=== PATIENT | female | born 1940 | race Caucasian/White ===

== ENCOUNTER 2016-12-20 16:12 | Inpatient (IN) | payer MEDICARE, OTHER ==
[2016-12-20] MEDS ORDERED: Sodium Chloride 0.9% 1,000 ML IV ONE (16:45)
[2016-12-20] MEDS ORDERED: Morphine 4 MG/ML Syringe IVPUSH ONE (16:46)
--- NOTE | 2016-12-20 16:46 | EDM.PDOC ---
ED HPI GENERAL MEDICAL PROBLEM - General Chief Complaint: Upper Extremity Injury/Pain Stated Complaint: FALL Time Seen by Provider: 12/20/16 16:30 Source of Information: Reports: Patient History Limitations: Reports: No Limitations - History of Present Illness INITIAL COMMENTS - FREE TEXT/NARRATIVE: Bella is a 76 year old female who presents to the ED today with c/o left shoulder pain, neck pain, rib pain, and pain with inspiration since falling today. Patient reports she was approximately 4 feet up on a ladder in her kitchen cleaning windows when she lost her balance and fell. She denies any lightheadedness or dizziness prior to falling. Patient reports she landed on her back then her head went back and struck the floor. Patient had PIV established enroute and was given fentanyl. Patient denies any LOC or nausea/ vomiting/visual changes. Patient reports her pain is starting to return. Onset: Today, Sudden Left Shoulder Pain Score (Numeric/FACES): 7 Left Pain Score (Numeric/FACES): 7 - Related Data Allergies Allergy/AdvReac Type Severity Reaction Status Date / Time cephalexin monohydrate Allergy Hives Verified 10/27/15 07:38 [From Keflex] ciprofloxacin [From Cipro] Allergy Hives Verified 10/27/15 07:38 ciprofloxacin HCl Allergy Hives Verified 10/27/15 07:38 [From Cipro] fluticasone propionate Allergy Cannot Verified 10/27/15 07:38 [From Advair Diskus] Remember salmeterol xinafoate Allergy Cannot Verified 10/27/15 07:38 [From Advair Diskus] Remember Sulfa (Sulfonamide Allergy Hives Verified 10/27/15 07:38 Antibiotics) Home Meds: Home Meds Albuterol Sulfate [Proair Hfa] 2 puff IH QID PRN 05/23/13 [History] Atenolol [Tenormin] 50 mg PO DAILY 05/23/13 [History] Calcium Carb & Citrate/Vit D3 [Citracal + D ER] 1 each PO DAILY 05/23/13 [ History] Hydrochlorothiazide 25 mg PO DAILY 05/23/13 [History] Levothyroxine [Synthroid] 75 mcg PO ACBRK 05/23/13 [History] Mometasone Furoate [Asmanex 220 MCG] 2 puff IH BID 05/23/13 [History] Multivitamin [Multivitamins] 1 cap PO DAILY 05/23/13 [History] Potassium 10 meq PO BID 05/23/13 [History] Cyanocobalamin (Vitamin B12) [Vitamin B12] 100 mcg PO DAILY 02/21/15 [History] Fluticasone Propionate [Flonase] 2 spray MAXIMINO DAILY 02/21/15 [History] Acetaminophen [Tylenol Extra Strength] 500 mg PO BID PRN 10/27/15 [History] Erythromycin Base [Erythromycin 0.5% Ophth Oint] 1 applic OP BEDTIME 10/27/15 [ History] Neomy Sulf/Polymyx B Sul/Hc [IMW: Cortisporin Otic Susp] 1 drop EYEBOTH TID [History] Past Medical History HEENT History: Reports: Cataract, Impaired Vision, Otitis Media Other HEENT History: wears glasses with driving Cardiovascular History: Reports: Heart Murmur, Hypertension Respiratory History: Reports: Asthma Gastrointestinal History: Reports: Colon Polyp, GERD, Hemorrhoids Genitourinary History: Reports: Renal Calculus 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, Musculoskeletal History: Reports: Other (See Below) Other Musculoskeletal History: right hip pain due to recent fall Neurological History: Reports: CVA Endocrine/Metabolic History: Reports: Hypothyroidism - Infectious Disease History Infectious Disease History: Reports: Chicken Pox, Measles, Mumps - Past Surgical History HEENT Surgical History: Reports: Cataract Surgery Female Surgical History: Reports: Hysterectomy, Salpingo-Oophorectomy Neurological Surgical History: Reports: Other (See Below) Musculoskeletal Surgical History: Reports: Arthroscopic Knee Social & Family History - Family History Family Medical History: Noncontributory - Tobacco Use Smoking Status *Q: Never Smoker Second Hand Smoke Exposure: Yes - Caffeine Use Caffeine Use: Reports: Coffee - Alcohol Use Days Per Week of Alcohol Use: 0 - Recreational Drug Use Recreational Drug Use: No Review of Systems - Review of Systems Review Of Systems: See Below Constitutional: Reports: No Symptoms Eyes: Reports: No Symptoms Ears: Reports: No Symptoms Nose: Reports: No Symptoms Mouth/Throat: Reports: No Symptoms Respiratory: Reports: Shortness of Breath, Pleuritic Chest Pain Cardiovascular: Reports: No Symptoms GI/Abdominal: Reports: No Symptoms Genitourinary: Reports: No Symptoms Musculoskeletal: Reports: Neck Pain, Shoulder Pain, Arm Pain, Back Pain, Muscle Pain Skin: Reports: No Symptoms Neurological: Reports: No Symptoms Psychiatric: Reports: No Symptoms ED EXAM, GENERAL - Physical Exam Exam: See Below Exam Limited By: No Limitations General Appearance: Alert, WD/WN, No Apparent Distress Ears: Normal External Exam Ear Exam: Bilateral Ear: TM normal Nose: Normal Inspection Throat/Mouth: Normal Oropharynx Head: Atraumatic, Normocephalic Neck: Supple, Other (Distal cervical spine tenderness) Respiratory/Chest: Lungs Clear, Other (bilateral tenderness anterior chest wall , no crepitus) Cardiovascular: Normal Peripheral Pulses, No Edema, No Murmur, Bradycardia GI/Abdominal: Normal Bowel Sounds, Soft, Non-Tender Back Exam: Normal Inspection, Paraspinal Tenderness (thoracic), Other ( posterior rib region bilaterally, mid thoracic). No: CVA Tenderness (R), CVA Tenderness (L) Extremities: Normal Inspection, Normal Capillary Refill, Other (left shoulder tender, humeral head, scapular region and left humerus. strength is 5/5 distal and proximal pulses intact) Neurological: Alert, Oriented, CN II-XII Intact, Normal Cognition, No Motor/ Sensory Deficits Psychiatric: Normal Affect, Normal Mood Skin Exam: Warm, Dry, Intact Lymphatic: No Adenopathy Course - Vital Signs Last Recorded V/S: Last Vital Signs Temp 35.5 C 12/20/16 16:16 Pulse 59 L 12/20/16 16:16 Resp 18 12/20/16 16:16 BP 177/66 H 12/20/16 16:16 Pulse Ox 93 L 12/20/16 16:16 Bella is a 76 year old female who presents to the ED today with c/o left shoulder, upper arm, cervical spine, back and rib/chest pain after she fell off of a ladder from 4 feet. Patient denies any loss of consciousness, please refer to HPI and focused exam. Patient arrives here with PIV in place by EMS. She was given 4 mg morphine with good relief. Blood work including CBC and CMP obtained, CBC returns with mild leukocytosis of 13.2 with a left shift. CMP returns with potassium of 3.1, glucose of 108. Imaging obtained of left shoulder and humerus, read by radiology with no acute findings. CT cervical spine done which is also negative. CT of chest obtained without contrast and shows mild cortical angulation of the right posterior 8th rib along with mild compression deformity along the superior end plate of T3 and mild compression deformity of T4 is noted. Patient also has patchy consolidation present in the posterior lobes bilaterally which according to radiology bay be related to atelectasis, aspiration or pneumonia. I discussed findings with patient and her family. Patient has extreme pain with any movement and patient and family feel that she will not be able to care for herself at home secondary to her level of pain. Patient will be admitted to observation for pain control, accepted by KAITLIN Patrick. Potassium will be replaced during her stay. Patient and family agreeable to plan of care and patient admitted in stable condition. - Orders/Labs/Meds Orders: Active Orders 24 hr Category Date Time Status Patient Status Manage Transfer [TRANSFER] Routine ADT 12/20/16 19:20 Active Cervical Spine wo Cont [CT] Stat Exams 12/20/16 16:45 Taken Chest wo Cont [CT] Stat Exams 12/20/16 16:44 Taken Humerus Lt [CR] Stat Exams 12/20/16 17:20 Taken Shoulder Comp Lt [CR] Stat Exams 12/20/16 17:16 Taken Resuscitation Status Routine Resus Stat 12/20/16 19:26 Ordered Labs: Laboratory Tests 12/20/16 12/20/16 Range/Units 16:54 16:54 WBC 13.2 H (4.5-11.0) K/uL RBC 4.58 (3.30-5.50) M/uL Hgb 14.0 (12.0-15.0) g/dL Hct 42.4 (36.0-48.0) % MCV 93 (80-98) fL MCH 31 (27-31) pg MCHC 33 (32-36) % Plt Count 199 (150-400) K/uL Neut % (Auto) 81 H (36-66) % Lymph % (Auto) 12 L (24-44) % [place]ke % (Auto) 6 (2-6) % Eos % (Auto) 1 L (2-4) % Baso % (Auto) 1 (0-1) % Sodium 141 (140-148) mmol/L Potassium 3.1 L (3.6-5.2) mmol/L Chloride 104 (100-108) mmol/L Carbon Dioxide 27 (21-32) mmol/L Anion Gap 13.1 (5.0-14.0) mmol/L BUN 13 (7-18) mg/dL Creatinine 0.8 (0.6-1.0) mg/dL Est Cr Clr Drug Dosing 42.97 mL/min Estimated GFR (MDRD) > 60 (>60) Glucose 108 H (74-106) mg/dL Calcium 8.7 (8.5-10.1) mg/dL Total Bilirubin 0.6 (0.2-1.0) mg/dL AST 37 (15-37) U/L ALT 26 (12-78) U/L Alkaline Phosphatase 81 (46-116) U/L Total Protein 7.1 (6.4-8.2) g/dL Albumin 3.5 (3.4-5.0) g/dL Globulin 3.6 H (2.3-3.5) g/dL Albumin/Globulin Ratio 1.0 L (1.2-2.2) Meds: Medications Discontinued Medications Generic Name Dose Route Start Last Admin Trade Name Freq PRN Reason Stop Dose Admin Fentanyl 25 mcg 12/20/16 17:36 Sublimaze IVPUSH 12/20/16 17:37 ONETIME ONE Sodium Chloride 1,000 mls @ 500 mls/hr 12/20/16 16:45 12/20/16 18:04 Normal Saline IV 12/20/16 18:44 500 mls/hr .BOLUS ONE Administration Morphine Sulfate 4 mg 12/20/16 16:46 12/20/16 17:56 Morphine IVPUSH 12/20/16 16:47 4 mg ONETIME ONE Administration Departure - Departure Time of Disposition: 20:30 Disposition: Admitted As Inpatient 66 Condition: Good Clinical Impression: Compression fracture of thoracic vertebra Qualifiers: Encounter type: initial encounter Fracture type: closed Qualified Code(s): S22.000A - Wedge compression fracture of unspecified thoracic vertebra, initial encounter for closed fracture Rib fracture Qualifiers: Encounter type: initial encounter Rib fracture type: single rib Fracture type: closed Laterality: right Qualified Code(s): S22.31XA - Fracture of one rib, right side, initial encounter for closed fracture Fall from ladder Qualifiers: Encounter type: initial encounter Qualified Code(s): W11.XXXA - Fall on and from ladder, initial encounter - Discharge Information Forms: ED Department Discharge - My Orders Last 24 Hours: My Active Orders 12/20/16 16:44 Chest wo Cont [CT] Stat 12/20/16 16:45 Cervical Spine wo Cont [CT] Stat 12/20/16 17:16 Shoulder Comp Lt [CR] Stat 12/20/16 17:20 Humerus Lt [CR] Stat - Assessment/Plan Last 24 Hours: My Active Orders 12/20/16 16:44 Chest wo Cont [CT] Stat 12/20/16 16:45 Cervical Spine wo Cont [CT] Stat 12/20/16 17:16 Shoulder Comp Lt [CR] Stat 12/20/16 17:20 Humerus Lt [CR] Stat
[2016-12-20] MEDS ORDERED: fentaNYL 100 MCG/2 ML SDV IVPUSH ONE (17:36)
--- NOTE | 2016-12-20 19:52 | PCM.HP ---
H&P History of Present Illness - General Date of Service: 12/20/16 Admit Problem/Dx: Admission Diagnosis/Problem Admission Diagnosis/Problem Fracture of rib Source of Information: Patient History Limitations: Reports: No Limitations - History of Present Illness Initial Comments - Free Text/Narative: I- History of Present Illness INITIAL COMMENTS - FREE TEXT/NARRATIVE: Bella is a 76 year old female who presents to the ED today with c/o left shoulder pain, neck pain, rib pain, and pain with inspiration since falling today at 1430. Patient reports she was approximately 4 feet up on a ladder in her kitchen cleaning windows when she lost her balance and fell. She denies any lightheadedness or dizziness prior to falling. Patient reports she landed on her back then her head went back and struck the floor. Patient had IV established enroute and was given fentanyl. Patient denies any LOC or nausea/ vomiting/visual changes. Patient reports her pain is starting to return. Onset: Today, Sudden During ER evaluation; CT scan, Xray; Rt. 8 th rib fracture, compression Fx T3, T4 Lab; K+3.1 mrs. Dorado was unable to sit or stand due to pain, will plan; admit to hospital Onset of Symptoms: Reports: Today Symptom Onset Date: 12/20/16 Symptom Onset Time: 14:30 Duration of Symptoms: Reports: Hour(s): Location: Reports: Back Quality: Reports: Sharp, Throbbing Severity: Moderate Improves with: Reports: Medication Worsens with: Reports: Movement Context: Reports: Trauma (fall off ladder about 4 feet to kitchen floor) Associated Symptoms: Reports: Shortness of Breath, Weakness Left Shoulder Pain Score (Numeric/FACES): 7 Left Pain Score (Numeric/FACES): 7 - Related Data Allergies/Adverse Reactions: Allergies Allergy/AdvReac Type Severity Reaction Status Date / Time cephalexin monohydrate Allergy Hives Verified 10/27/15 07:38 [From Keflex] ciprofloxacin [From Cipro] Allergy Hives Verified 10/27/15 07:38 ciprofloxacin HCl Allergy Hives Verified 10/27/15 07:38 [From Cipro] fluticasone propionate Allergy Cannot Verified 10/27/15 07:38 [From Advair Diskus] Remember salmeterol xinafoate Allergy Cannot Verified 10/27/15 07:38 [From Advair Diskus] Remember Sulfa (Sulfonamide Allergy Hives Verified 10/27/15 07:38 Antibiotics) Home Medications: Home Meds Albuterol Sulfate [Proair Hfa] 2 puff IH QID PRN 05/23/13 [History] Atenolol [Tenormin] 50 mg PO DAILY 05/23/13 [History] Calcium Carb & Citrate/Vit D3 [Citracal + D ER] 1 each PO DAILY 05/23/13 [ History] Hydrochlorothiazide 25 mg PO DAILY 05/23/13 [History] Levothyroxine [Synthroid] 75 mcg PO ACBRK 05/23/13 [History] Mometasone Furoate [Asmanex 220 MCG] 2 puff IH BID 05/23/13 [History] Multivitamin [Multivitamins] 1 cap PO DAILY 05/23/13 [History] Potassium 10 meq PO BID 05/23/13 [History] Cyanocobalamin (Vitamin B12) [Vitamin B12] 100 mcg PO DAILY 02/21/15 [History] Fluticasone Propionate [Flonase] 2 spray MAXIMINO DAILY 02/21/15 [History] Acetaminophen [Tylenol Extra Strength] 500 mg PO BID PRN 10/27/15 [History] Erythromycin Base [Erythromycin 0.5% Ophth Oint] 1 applic OP BEDTIME 10/27/15 [ History] Neomy Sulf/Polymyx B Sul/Hc [IMW: Cortisporin Otic Susp] 1 drop EYEBOTH TID [History] Past Medical History HEENT History: Reports: Cataract, Impaired Vision, Otitis Media Other HEENT History: wears glasses with driving Cardiovascular History: Reports: Heart Murmur, Hypertension Respiratory History: Reports: Asthma Gastrointestinal History: Reports: Colon Polyp, GERD, Hemorrhoids Genitourinary History: Reports: Renal Calculus [employer]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, Musculoskeletal History: Reports: Other (See Below) Other Musculoskeletal History: right hip pain due to recent fall Neurological History: Reports: CVA Endocrine/Metabolic History: Reports: Hypothyroidism - Infectious Disease History Infectious Disease History: Reports: Chicken Pox, Measles, Mumps - Past Surgical History HEENT Surgical History: Reports: Cataract Surgery Female Surgical History: Reports: Hysterectomy, Salpingo-Oophorectomy Neurological Surgical History: Reports: Other (See Below) Musculoskeletal Surgical History: Reports: Arthroscopic Knee Social & Family History - Family History Family Medical History: Noncontributory - Tobacco Use Smoking Status *Q: Never Smoker Second Hand Smoke Exposure: Yes - Caffeine Use Caffeine Use: Reports: Coffee - Alcohol Use Days Per Week of Alcohol Use: 0 - Recreational Drug Use Recreational Drug Use: No - Living Situation & Occupation Living situation: Reports: , with Family Occupation: Retired (lives with in [place], [place], children are out of the home, blended family; her five children, his 2 children and raised 2 grand children.) H&P Review of Systems - Review of Systems: Review Of Systems: See Below General: Reports: Weakness (pain with sitting) HEENT: Reports: Glasses Pulmonary: Reports: Shortness of Breath, Other (asthma) Cardiovascular: Reports: No Symptoms Gastrointestinal: Reports: Other (last bowel movement) Genitourinary: Reports: No Symptoms Musculoskeletal: Reports: Shoulder Pain (left), Back Pain, Muscle Pain Skin: Reports: No Symptoms Psychiatric: Reports: No Symptoms Neurological: Reports: No Symptoms Hematologic/Lymphatic: Reports: No Symptoms Immunologic: Reports: No Symptoms Exam - Exam Exam: See Below - Vital Signs Vital Signs: Last Vital Signs Temp 35.5 C 12/20/16 16:16 Pulse 59 L 12/20/16 16:16 Resp 18 12/20/16 16:16 BP 177/66 H 12/20/16 16:16 Pulse Ox 93 L 12/20/16 16:16 Weight: 76 kg - Exam Quality Assessment: Supplemental Oxygen General: Alert, Oriented, Cooperative, Mild Distress HEENT: PERRLA, Conjunctiva Clear, EACs Clear, EOMI, Hearing Intact, Mucosa Moist & [place], Nares Patent, Normal Nasal Septum, Posterior Pharynx Clear, Pupils Equal, Pupils Reactive, TMs Clear Neck: Supple, Trachea Midline Lungs: Clear to Auscultation, Normal Respiratory Effort Cardiovascular: Regular Rate, Regular Rhythm, Normal S1, Normal S2 GI/Abdominal Exam: Normal Bowel Sounds, Soft, Non-Tender, No Organomegaly, No Distention, No Abnormal Bruit, No Mass, Pelvis Stable (Female) Exam: Deferred Rectal (Female) Exam: Deferred Back Exam: Decreased Range of Motion, Muscle Spasm, Other (increased pain with movement, sitting upright causing 10+ pain) Extremities: Normal Inspection, Normal Range of Motion, Non-Tender, No Pedal Edema, Normal Capillary Refill, Arm Pain (left arm painful from fall.) Skin: Warm, Dry, Intact Neurological: Cranial Nerves Intact, Reflexes Equal Bilateral Neuro Extensive - Mental Status: Alert, Oriented x3, Normal Mood/Affect, Normal Cognition Neuro Extensive - Motor, Sensory, Reflexes: Normal Reflexes Psychiatric: Alert, Normal Affect, Normal Mood - Patient Data Lab Results Last 24 hrs: Laboratory Results - last 24 hr 12/20/16 12/20/16 Range/Units 16:54 16:54 WBC 13.2 H (4.5-11.0) K/uL RBC 4.58 (3.30-5.50) M/uL Hgb 14.0 (12.0-15.0) g/dL Hct 42.4 (36.0-48.0) % MCV 93 (80-98) fL MCH 31 (27-31) pg MCHC 33 (32-36) % Plt Count 199 (150-400) K/uL Neut % (Auto) 81 H (36-66) % Lymph % (Auto) 12 L (24-44) % [place] % (Auto) 6 (2-6) % Eos % (Auto) 1 L (2-4) % Baso % (Auto) 1 (0-1) % Sodium 141 (140-148) mmol/L Potassium 3.1 L (3.6-5.2) mmol/L Chloride 104 (100-108) mmol/L Carbon Dioxide 27 (21-32) mmol/L Anion Gap 13.1 (5.0-14.0) mmol/L BUN 13 (7-18) mg/dL Creatinine 0.8 (0.6-1.0) mg/dL Est Cr Clr Drug Dosing 42.97 mL/min Estimated GFR (MDRD) > 60 (>60) Glucose 108 H (74-106) mg/dL Calcium 8.7 (8.5-10.1) mg/dL Total Bilirubin 0.6 (0.2-1.0) mg/dL AST 37 (15-37) U/L ALT 26 (12-78) U/L Alkaline Phosphatase 81 (46-116) U/L Total Protein 7.1 (6.4-8.2) g/dL Albumin 3.5 (3.4-5.0) g/dL Globulin 3.6 H (2.3-3.5) g/dL Albumin/Globulin Ratio 1.0 L (1.2-2.2) Result Diagrams: 12/20/16 16:54 12/20/16 16:54 *Q Meaningful Use (ADM) - VTE *Q VTE Criteria *Q: - Stroke *Q Stroke Criteria *Q: - AMI *Q AMI Criteria *Q: - Problem List (1) Active asthma SNOMED Code(s): 029240500 ICD Code: J45.909 - UNSPECIFIED ASTHMA, UNCOMPLICATED Status: Acute Priority: Medium Current Visit: Yes (2) Compression fracture of thoracic vertebra SNOMED Code(s): 814310045, 737738785 ICD Code: S22.000A - WEDGE COMPRESSION FRACTURE OF UNSP THORACIC VERTEBRA, INIT Status: Acute Priority: High Current Visit: Yes Qualifiers: Encounter type: initial encounter Fracture type: closed Qualified Code(s) : S22.000A - Wedge compression fracture of unspecified thoracic vertebra, initial encounter for closed fracture (3) Fall from ladder SNOMED Code(s): 01645092 ICD Code: W11.XXXA - FALL ON AND FROM LADDER, INITIAL ENCOUNTER Status: Acute Priority: High Current Visit: Yes Qualifiers: Encounter type: initial encounter Qualified Code(s): W11.XXXA - Fall on and from ladder, initial encounter (4) Rib fracture SNOMED Code(s): 46874884 ICD Code: S22.39XA - FRACTURE OF ONE RIB, UNSP SIDE, INIT FOR CLOS FX Status: Acute Priority: High Current Visit: Yes Qualifiers: Encounter type: initial encounter Rib fracture type: single rib Fracture type: closed Laterality: right Qualified Code(s): S22.31XA - Fracture of one rib, right side, initial encounter for closed fracture (5) Hypertension SNOMED Code(s): 93344897 ICD Code: I10 - ESSENTIAL (PRIMARY) HYPERTENSION Status: Acute Priority: Medium Current Visit: Yes Qualifiers: Hypertension type: essential hypertension Qualified Code(s): I10 - Essential (primary) hypertension (6) Hypothyroidism SNOMED Code(s): 29920521 ICD Code: E03.9 - HYPOTHYROIDISM, UNSPECIFIED Status: Acute Priority: Medium Current Visit: Yes Qualifiers: Hypothyroidism type: unspecified Qualified Code(s): E03.9 - Hypothyroidism , unspecified (7) B12 deficiency SNOMED Code(s): 303766993 ICD Code: E53.8 - DEFICIENCY OF OTHER SPECIFIED B GROUP VITAMINS Status: Acute Priority: Medium Current Visit: Yes (8) Hypokalemia SNOMED Code(s): 50877594 ICD Code: E87.6 - HYPOKALEMIA Status: Acute Priority: Medium Current Visit: Yes (9) Urinary tract infection SNOMED Code(s): 09872557 ICD Code: N39.0 - URINARY TRACT INFECTION, SITE NOT SPECIFIED Status: Acute Current Visit: Yes Qualifiers: Urinary tract infection type: acute cystitis Hematuria presence: with hematuria Qualified Code(s): N30.01 - Acute cystitis with hematuria Problem List Initiated/Reviewed/Updated: Yes Orders Last 24hrs: Active Orders 24 hr Category Date Time Status Patient Status Manage Transfer [TRANSFER] Routine ADT 12/20/16 19:20 Active Cervical Spine wo Cont [CT] Stat Exams 12/20/16 16:45 Taken Chest wo Cont [CT] Stat Exams 12/20/16 16:44 Taken Humerus Lt [CR] Stat Exams 12/20/16 17:20 Taken Shoulder Comp Lt [CR] Stat Exams 12/20/16 17:16 Taken Resuscitation Status Routine Resus Stat 12/20/16 19:26 Ordered Assessment/Plan Comment:: Assessment/Plan Comment:: Assessment and plan - Bella is a 76 year old female who presents to the ED today with c/o left shoulder, upper arm, cervical spine, back and rib/chest pain after she fell off of a ladder from 4 feet. Patient denies any loss of consciousness, please refer to HPI and focused exam. Patient arrives here with PIV in place by EMS. She was given 4 mg morphine with good relief. Blood work including CBC and CMP obtained, CBC returns with mild leukocytosis of 13.2 with a left shift. CMP returns with potassium of 3.1, glucose of 108. Imaging obtained of left shoulder and humerus, read by radiology with no acute findings. CT cervical spine done which is also negative. CT of chest obtained without contrast and shows mild cortical angulation of the right posterior 8th rib along with mild compression deformity along the superior end plate of T3 and mild compression deformity of T4 is noted. Patient also has patchy consolidation present in the posterior lobes bilaterally which according to radiology may be related to atelectasis, aspiration or pneumonia. I discussed findings with patient and her family. Patient has extreme pain with any movement and patient and family feel that she will not be able to care for herself at home secondary to her level of pain. Patient will be admitted for pain control accepted by KAITLIN Patrick. Potassium will be replaced during her stay. Patient and family agreeable to plan of care and patient admitted in stable condition. Compression Fracture T3, T4, fracture right 8 th. 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 -consult to OT, PT Hypertension -Blood pressure control and close monitoring of vital signs Hypokalemia -IV Potassium 20 meq now -lab; bmp in am Hypothyroidism -Synthyroid Vitamin B12 -continue medication Asthma -order Albuterol Neb every 4 hours prn -order Duo nebs every 6 hours prn -continue inhalers Urinary Tract Infection -Augmentin 875 mg po bid -urine culture pending Maintenance issues - - DVT prophylaxis - ambulate - GI prophylaxis - PPI Protonix 40mg po daily - Nutrition - regular diet this evening, nothing by mouth after midnight - Walton catheter - not indicated CODE STATUS - FULL CODE Admission justification - This patient will be admitted for inpatient services and is medically appropriate meeting medical necessity for inpatient admission as outlined in my documentation. I reasonably expect the patient will require inpatient services that span a period time over 2 midnights. I reasonably expect this patient to be discharged or transferred within 96 hours [facility]. Disposition - anticipate discharge back to the detention after the hospital stay Primary care physician - Not listed. Hospitialist: Simon Cruz M.D.
[2016-12-20] MEDS ORDERED: Albuterol/Ipratropium 3.0-0.5 MG/3 ML Neb Soln NEB PRN (19:59)
[2016-12-20] MEDS ORDERED: Ondansetron 4 MG Tab.DIS PO PRN (19:59)
[2016-12-20] MEDS ORDERED: Docusate Sodium 100 MG Cap PO PRN (19:59)
[2016-12-20] MEDS ORDERED: Zolpidem 5 MG Tab PO PRN (19:59)
[2016-12-20] MEDS ORDERED: Levothyroxine 88 MCG Tab PO SCH (19:59)
[2016-12-20] MEDS ORDERED: Naloxone 0.4 MG/ML SDV IVPUSH PRN (19:59)
[2016-12-20] MEDS ORDERED: Albuterol 0.083% 2.5 MG/3 ML Neb Soln NEB PRN (19:59)
[2016-12-20] MEDS ORDERED: LORazepam 2 MG/ML MDV IV PRN (19:59)
[2016-12-20] MEDS ORDERED: HYDROmorphone/Normal Saline 15 MG/30 ML PCA IV PRN (19:59)
[2016-12-20] MEDS ORDERED: Ondansetron 4 MG/2 ML SDV IV PRN (19:59)
[2016-12-20] MEDS ORDERED: Albuterol 8 GM Inhaler INH PRN (19:59)
[2016-12-20] MEDS ORDERED: HYDROmorphone 1 MG/ML Syringe IVPUSH ONE (20:13)
[2016-12-20] MEDS: Sodium Chloride 0.9% 1,000 ML IV SCH (20:30)
[2016-12-20] MEDS ORDERED: Mometasone Furoate Powder 220 MCG/Puff 14 Dose Inhaler INH SCH (21:00)
[2016-12-20] MEDS ORDERED: POTASSIUM 10 MEQ PO SCH (21:00)
[2016-12-20] MEDS ORDERED: Potassium Chloride 20 MEQ in Premix Bag 1 BAG IV ONE (21:20)
[2016-12-20] MEDS: Erythromycin Base 0.5% Ophth Oint 1 GM Tube EYEBOTH SCH (22:11)
[2016-12-20] MEDS: Amoxicillin/Clavulanate K 875-125 MG Tab PO SCH (22:11)
[2016-12-20] MEDS ORDERED: Potassium Chloride 10 MEQ Tab.ER ONE (22:39)
[2016-12-21] MEDS: Sodium Chloride 0.9% 1,000 ML IV SCH ×2 (05:25→15:22)
[2016-12-21] MEDS: Cyanocobalamin (Vitamin B12) 1,000 MCG Tab PO SCH (08:50)
[2016-12-21] MEDS: Mometasone Furoate Powder 220 MCG/Puff 14 Dose Inhaler INH SCH ×2 (08:51→20:48)
[2016-12-21] MEDS: Potassium Chloride 10 MEQ Cap.ER PO SCH ×2 (08:54→17:13)
[2016-12-21] MEDS: Amoxicillin/Clavulanate K 875-125 MG Tab PO SCH ×2 (08:55→20:51)
[2016-12-21] MEDS: Fluticasone Propionate Nasal Spray 16 GM Bottle NAS SCH (08:56)
[2016-12-21] MEDS: Levothyroxine 75 MCG Tab PO SCH (08:56)
[2016-12-21] MEDS: Pantoprazole 40 MG Tab.CR PO SCH (08:56)
[2016-12-21] MEDS ORDERED: Pantoprazole 40 MG Tab.CR PO SCH (09:00)
[2016-12-21] MEDS ORDERED: Non-Formulary Medication 1 Each (Cyanocobalamin (Vitamin B12) [Vitamin B12] 100 MCG) PO SCH (09:00)
[2016-12-21] MEDS ORDERED: Hydrochlorothiazide 25 MG Tab PO SCH (09:00)
[2016-12-21] MEDS: Atenolol 50 MG Tab PO SCH (09:03)
[2016-12-21] MEDS: oxyCODONE 5 MG Tab PO PRN ×3 (09:09→19:19)
[2016-12-21] MEDS ORDERED: LORazepam 2 MG/ML MDV IV PRN (15:31)
--- NOTE | 2016-12-21 15:36 | PCM.PN ---
- General Info Date of Service: 12/21/16 Functional Status: Reports: Pain Controlled, Tolerating Diet, Ambulating - Review of Systems General: Reports: Weakness. Denies: Fever, Chills Pulmonary: Reports: No Symptoms Cardiovascular: Reports: No Symptoms Gastrointestinal: Reports: No Symptoms Musculoskeletal: Reports: Back Pain, Other (Chest wall pain) Systems Review Comment:: This patient is a 76-year-old woman who unfortunately fell at home yesterday experiencing a rib fracture as well as spinal compression fracture. She is been stable since admission and reports the pain control is adequate. She is experiencing difficulty with transitions getting in and out of bed and up and down from the chair. May require fpc placement until fractures heal and pain becomes less intense. - Patient Data Vitals - Most Recent: Last Vital Signs Temp 98.2 F 12/21/16 15:24 Pulse 55 L 12/21/16 15:24 Resp 16 12/21/16 15:24 BP 141/66 H 12/21/16 15:24 Pulse Ox 91 L 12/21/16 15:24 Weight - Most Recent: 167 lb 8.821 oz I&O - Last 24 Hours: Intake & Output 12/21/16 12/21/16 12/21/16 06:59 14:59 22:59 Intake Total 1048 Output Total 400 300 Balance 648 -300 Lab Results Last 24 Hours: Laboratory Results - last 24 hr 12/20/16 12/20/16 12/21/16 Range/Units 20:09 20:32 04:50 WBC 9.6 (4.5-11.0) K/uL RBC 3.84 (3.30-5.50) M/uL Hgb 12.1 (12.0-15.0) g/dL Hct 36.0 (36.0-48.0) % MCV 94 (80-98) fL MCH 32 H (27-31) pg MCHC 34 (32-36) % Plt Count 194 (150-400) K/uL Neut % (Auto) 74 H (36-66) % Lymph % (Auto) 16 L (24-44) % [place] % (Auto) 10 H (2-6) % Eos % (Auto) 0 L (2-4) % Baso % (Auto) 0 (0-1) % Sodium (140-148) mmol/L Potassium (3.6-5.2) mmol/L Chloride (100-108) mmol/L Carbon Dioxide (21-32) mmol/L Anion Gap (5.0-14.0) mmol/L BUN (7-18) mg/dL Creatinine (0.6-1.0) mg/dL Est Cr Clr Drug Dosing mL/min Estimated GFR (MDRD) (>60) Glucose (74-106) mg/dL Calcium (8.5-10.1) mg/dL Magnesium 2.0 (1.8-2.4) mg/dL Urine Color Yellow Urine Appearance Cloudy Urine pH 6.5 (4.5-8.0) Ur Specific [place] 1.015 (1.008-1.030) Urine Protein Negative (NEGATIVE) mg/dL Urine Glucose (UA) Normal (NEGATIVE) mg/dL Urine Ketones 15 H (NEGATIVE) mg/dL Urine Occult Blood Moderate (NEGATIVE) Urine Nitrite Positive H (NEGATIVE) Urine Bilirubin Negative (NEGATIVE) Urine Urobilinogen Normal (NORMAL) mg/dL Ur Leukocyte Esterase Moderate (NEGATIVE) Urine RBC 5-10 H (0-5) Urine WBC 10-20 H (0-5) Ur Epithelial Cells Moderate Amorphous Sediment Few Urine Bacteria Many Urine Mucus Few 12/21/16 Range/Units 04:50 WBC (4.5-11.0) K/uL RBC (3.30-5.50) M/uL Hgb (12.0-15.0) g/dL Hct (36.0-48.0) % MCV (80-98) fL MCH (27-31) pg MCHC (32-36) % Plt Count (150-400) K/uL Neut % (Auto) (36-66) % Lymph % (Auto) (24-44) % [place] % (Auto) (2-6) % Eos % (Auto) (2-4) % Baso % (Auto) (0-1) % Sodium 142 (140-148) mmol/L Potassium 3.6 (3.6-5.2) mmol/L Chloride 106 (100-108) mmol/L Carbon Dioxide 27 (21-32) mmol/L Anion Gap 8.7 (5.0-14.0) mmol/L BUN 12 (7-18) mg/dL Creatinine 0.7 (0.6-1.0) mg/dL Est Cr Clr Drug Dosing 49.11 mL/min Estimated GFR (MDRD) > 60 (>60) Glucose 133 H (74-106) mg/dL Calcium 8.5 (8.5-10.1) mg/dL Magnesium (1.8-2.4) mg/dL Urine Color Urine Appearance Urine pH (4.5-8.0) Ur Specific [place] (1.008-1.030) Urine Protein (NEGATIVE) mg/dL Urine Glucose (UA) (NEGATIVE) mg/dL Urine Ketones (NEGATIVE) mg/dL Urine Occult Blood (NEGATIVE) Urine Nitrite (NEGATIVE) Urine Bilirubin (NEGATIVE) Urine Urobilinogen (NORMAL) mg/dL Ur Leukocyte Esterase (NEGATIVE) Urine RBC (0-5) Urine WBC (0-5) Ur Epithelial Cells Amorphous Sediment Urine Bacteria Urine Mucus Med Orders - Current: Current Medications Acetaminophen (Tylenol) 650 mg PO Q4H PRN PRN Reason: Pain (Mild 1-3)/fever Albuterol (Proventil Neb Soln) 2.5 mg NEB Q4H PRN PRN Reason: Shortness Of Breath/wheezing Albuterol (Ventolin Hfa) 0 gm INH QID PRN PRN Reason: Shortness of Breath Last Admin: 12/21/16 15:18 Dose: 2 puff Albuterol/Ipratropium (Duoneb 3.0-0.5 Mg/3 Ml) 3 ml NEB QID PRN PRN Reason: Shortness Of Breath/wheezing Amoxicillin/Clavulanate Potassium (Augmentin 875 Mg/125 Mg) 1 tab PO BID [facility] Last Admin: 12/21/16 08:55 Dose: 1 tab Atenolol (Tenormin) 50 mg PO DAILY [facility] Last Admin: 12/21/16 09:03 Dose: 50 mg Cyanocobalamin (Vitamin B12) 500 mcg PO DAILY [facility] Last Admin: 12/21/16 08:50 Dose: Not Given Docusate Sodium (Colace) 100 mg PO BID PRN PRN Reason: Constipation Erythromycin (Erythromycin 0.5% Ophth Oint) 0 gm EYEBOTH BEDTIME [facility] Last Admin: 12/20/16 22:11 Dose: 1 applic Fluticasone Propionate (Flonase) 0 gm MAXIMINO DAILY [facility] Last Admin: 12/21/16 08:56 Dose: Not Given Hydrochlorothiazide (Hydrochlorothiazide) 25 mg PO BEDTIME [facility] Lactobacillus Rhamnosus (Culturelle) 2 cap PO BID [facility] Levothyroxine Sodium (Levothyroxine) 75 mcg PO ACBREAKFAST [facility] Last Admin: 12/21/16 08:56 Dose: 75 mcg Lorazepam (Ativan) 0.5 mg IV Q4H PRN PRN Reason: Nausea/Vomiting Mometasone Furoate (Asmanex 220 Mcg) 2 puff INH BIDRT [facility] Last Admin: 12/21/16 08:51 Dose: Not Given Naloxone HCl (Narcan) 0.4 mg IVPUSH Q2M PRN PRN Reason: Respiratory Distress Ondansetron HCl (Zofran Odt) 4 mg PO Q6H PRN PRN Reason: Nausea able to take PO Ondansetron HCl (Zofran) 4 mg IV Q4H PRN PRN Reason: Nausea/Vomiting Oxycodone HCl (Oxycodone) 5 mg PO Q4H PRN PRN Reason: Pain (moderate 4-6) Last Admin: 12/21/16 13:27 Dose: 5 mg Pantoprazole Sodium (Protonix) 40 mg PO ACBREAKFAST [facility] Last Admin: 12/21/16 08:56 Dose: 40 mg Potassium Chloride (Potassium Chloride) 10 meq PO BIDMEALS [facility] Last Admin: 12/21/16 08:54 Dose: 10 meq Zolpidem Tartrate (Ambien) 5 mg PO BEDTIME PRN PRN Reason: Sleep Discontinued Medications Fentanyl (Sublimaze) 25 mcg IVPUSH ONETIME ONE Stop: 12/20/16 17:37 Last Admin: 12/21/16 07:38 Dose: Not Given Hydromorphone HCl (Dilaudid Insurance Commissioner 15 Mg In Ns 30 Ml) 0 mg IV ASDIRECTED PRN; Protocol PRN Reason: Pain Last Admin: 12/20/16 21:31 Dose: 15 mg Hydromorphone HCl (Dilaudid) 1 mg IVPUSH ONETIME ONE Stop: 12/20/16 20:14 Last Admin: 12/20/16 20:27 Dose: 1 mg Sodium Chloride (Normal Saline) 1,000 mls @ 500 mls/hr IV .BOLUS ONE Stop: 12/20/16 18:44 Last Admin: 12/20/16 18:04 Dose: 500 mls/hr Sodium Chloride (Normal Saline) 1,000 mls @ 100 mls/hr IV ASDIRECTED [facility] Last Admin: 12/21/16 15:22 Dose: 100 mls/hr Potassium Acetate 20 meq/ (Sodium Chloride) 110 mls @ 50 mls/hr IV ONETIME ONE Stop: 12/20/16 22:12 Last Admin: 12/20/16 22:23 Dose: Not Given Potassium Chloride 20 meq/ (Premix) 100 mls @ 50 mls/hr IV ONETIME ONE Stop: 12/20/16 23:19 Last Admin: 12/20/16 22:09 Dose: 50 mls/hr Levothyroxine Sodium (Synthroid) 75 mcg PO ACBRK [facility] Last Admin: 12/20/16 22:32 Dose: Not Given Lidocaine HCl (Xylocaine-Mpf 1%) 5 ml INJECT ONETIME ONE Stop: 12/20/16 21:44 Last Admin: 12/20/16 22:10 Dose: 5 ml Lidocaine HCl (Xylocaine-Mpf 1%) Confirm Administered Dose 5 ml .ROUTE .STK-MED ONE Stop: 12/20/16 21:47 Last Admin: 12/20/16 22:41 Dose: Not Given Lorazepam (Ativan) 1 mg IV Q6H PRN PRN Reason: Nausea/Vomiting Mometasone Furoate (Asmanex 220 Mcg) 2 puff INH BID [facility] Last Admin: 12/20/16 22:33 Dose: Not Given Morphine Sulfate (Morphine) 4 mg IVPUSH ONETIME ONE Stop: 12/20/16 16:47 Last Admin: 12/20/16 17:56 Dose: 4 mg Non-Formulary Medication (Cyanocobalamin (Vitamin B12) [Vitamin B12]) 100 mcg PO DAILY [facility] Non-Formulary Medication (Potassium [Potassium]) 10 meq PO BID [facility] Last Admin: 12/20/16 22:40 Dose: 10 meq Pantoprazole Sodium (Protonix) 40 mg PO DAILY [facility] Potassium Chloride (Klor-Con 10) Confirm Administered Dose 10 meq .ROUTE .STK- MED ONE Stop: 12/20/16 22:40 Last Admin: 12/20/16 22:44 Dose: Not Given - Exam Quality Assessment: DVT Prophylaxis General: Alert, Oriented, Cooperative, Mild Distress Lungs: Clear to Auscultation, Normal Respiratory Effort Cardiovascular: Regular Rate, Regular Rhythm, No Murmurs GI/Abdominal Exam: Normal Bowel Sounds, Soft, Non-Tender, No Distention Extremities: Normal Inspection, No Pedal Edema Skin: Warm, Dry, Intact - Problem List Review Problem List Initiated/Reviewed/Updated: Yes - My Orders Last 24 Hours: My Active Orders 12/21/16 15:30 Convert IV to Saline Lock [OM.PC] Routine 12/21/16 15:31 LORazepam [Ativan] 0.5 mg IV Q4H PRN 12/21/16 15:45 Lactobacillus Rhamnosus GG [Culturelle] 2 cap PO BID - Plan Plan:: Assessment and plan Compression Fracture T3, T4, fracture right 8 th. rib -Admit for pain control -Oxycodone 5 mg by mouth every 4 hours -consult to OT, PT Hypertension -Blood pressure control and close monitoring of vital signs Hypokalemia-resolved Hypothyroidism -Synthyroid Vitamin B12 -continue medication Asthma -order Albuterol Neb every 4 hours prn -order Duo nebs every 6 hours prn -continue inhalers Urinary Tract Infection -Augmentin 875 mg po bid -urine culture pending Maintenance issues - - DVT prophylaxis - ambulate - GI prophylaxis - PPI Protonix 40mg po daily - Nutrition - regular diet this evening, nothing by mouth after midnight - Walton catheter - not indicated CODE STATUS - FULL CODE Admission justification - This patient will be admitted for inpatient services and is medically appropriate meeting medical necessity for inpatient admission as outlined in my documentation. I reasonably expect the patient will require inpatient services that span a period time over 2 midnights. I reasonably expect this patient to be discharged or transferred within [facility] hours [facility]. Disposition - possible discharge to home versus fpc placement Primary care physician - Not listed. Hospitialist: Simon Cruz M.D.
[2016-12-21] MEDS: Lactobacillus Rhamnosus GG (Probiotic) Cap PO SCH ×2 (16:07→20:51)
[2016-12-21] MEDS: Acetaminophen 325 MG Tab PO PRN (17:12)
[2016-12-21] MEDS: Erythromycin Base 0.5% Ophth Oint 1 GM Tube EYEBOTH SCH (20:51)
[2016-12-21] MEDS: Hydrochlorothiazide 25 MG Tab PO SCH (20:52)
[2016-12-22] MEDS: oxyCODONE 5 MG Tab PO PRN ×4 (01:34→22:25)
[2016-12-22] MEDS: Acetaminophen 325 MG Tab PO PRN ×3 (05:16→21:03)
[2016-12-22] MEDS: Lactobacillus Rhamnosus GG (Probiotic) Cap PO SCH ×2 (08:28→20:57)
[2016-12-22] MEDS: Cyanocobalamin (Vitamin B12) 1,000 MCG Tab PO SCH (08:28)
[2016-12-22] MEDS: Pantoprazole 40 MG Tab.CR PO SCH (08:28)
[2016-12-22] MEDS: Potassium Chloride 10 MEQ Cap.ER PO SCH ×2 (08:29→16:25)
[2016-12-22] MEDS: Levothyroxine 75 MCG Tab PO SCH (08:29)
[2016-12-22] MEDS: Fluticasone Propionate Nasal Spray 16 GM Bottle NAS SCH (08:30)
[2016-12-22] MEDS: Amoxicillin/Clavulanate K 875-125 MG Tab PO SCH ×2 (08:30→20:57)
[2016-12-22] MEDS: Atenolol 50 MG Tab PO SCH (08:31)
[2016-12-22] MEDS: Mometasone Furoate Powder 220 MCG/Puff 14 Dose Inhaler INH SCH ×2 (08:38→20:55)
--- NOTE | 2016-12-22 15:22 | PCM.PN ---
- General Info Date of Service: 12/22/16 Functional Status: Reports: Pain Controlled, Tolerating Diet, Ambulating - Review of Systems General: Reports: Weakness. Denies: Fever, Chills Pulmonary: Reports: No Symptoms Cardiovascular: Reports: No Symptoms Gastrointestinal: Reports: No Symptoms Musculoskeletal: Reports: Back Pain Systems Review Comment:: This patient has been stable since yesterday, doing somewhat better with transfers as well as ambulation. We have discussed options for discharge, she does not want to consider assisted placement. Will plan for discharge to home with home care tomorrow. - Patient Data Vitals - Most Recent: Last Vital Signs Temp 99.0 F 12/22/16 14:50 Pulse 57 L 12/22/16 14:50 Resp 16 12/22/16 14:50 BP 178/72 H 12/22/16 14:50 Pulse Ox 92 L 12/22/16 14:50 Weight - Most Recent: 167 lb 8.821 oz I&O - Last 24 Hours: Intake & Output 12/22/16 12/22/16 12/22/16 06:59 14:59 22:59 Intake Total 360 Output Total 1150 Balance -1150 360 Med Orders - Current: Current Medications Acetaminophen (Tylenol) 650 mg PO Q4H PRN PRN Reason: Pain (Mild 1-3)/fever Last Admin: 12/22/16 14:16 Dose: 650 mg Albuterol (Proventil Neb Soln) 2.5 mg NEB Q4H PRN PRN Reason: Shortness Of Breath/wheezing Albuterol (Ventolin Hfa) 0 gm INH QID PRN PRN Reason: Shortness of Breath Last Admin: 12/21/16 15:18 Dose: 2 puff Albuterol/Ipratropium (Duoneb 3.0-0.5 Mg/3 Ml) 3 ml NEB QID PRN PRN Reason: Shortness Of Breath/wheezing Amoxicillin/Clavulanate Potassium (Augmentin 875 Mg/125 Mg) 1 tab PO BID [facility] Last Admin: 12/22/16 08:30 Dose: 1 tab Atenolol (Tenormin) 50 mg PO DAILY [facility] Last Admin: 12/22/16 08:31 Dose: 50 mg Cyanocobalamin (Vitamin B12) 500 mcg PO DAILY [facility] Last Admin: 08/09/17 08:28 Dose: 500 mcg Docusate Sodium (Colace) 100 mg PO BID PRN PRN Reason: Constipation Erythromycin (Erythromycin 0.5% Ophth Oint) 0 gm EYEBOTH BEDTIME [facility] Last Admin: 12/21/16 20:51 Dose: Not Given Fluticasone Propionate (Flonase) 0 gm MAXIMINO DAILY [facility] Last Admin: 12/22/16 08:30 Dose: Not Given Hydrochlorothiazide (Hydrochlorothiazide) 25 mg PO BEDTIME [facility] Last Admin: 12/21/16 20:52 Dose: 25 mg Lactobacillus Rhamnosus (Culturelle) 2 cap PO BID [facility] Last Admin: 12/22/16 08:28 Dose: 2 cap Levothyroxine Sodium (Levothyroxine) 75 mcg PO ACBREAKFAST [facility] Last Admin: 12/22/16 08:29 Dose: 75 mcg Lisinopril (Prinivil) 10 mg PO DAILY [facility] Lorazepam (Ativan) 0.5 mg IV Q4H PRN PRN Reason: Nausea/Vomiting Mometasone Furoate (Asmanex 220 Mcg) 2 puff INH BIDRT [facility] Last Admin: 12/22/16 08:38 Dose: Not Given Naloxone HCl (Narcan) 0.4 mg IVPUSH Q2M PRN PRN Reason: Respiratory Distress Ondansetron HCl (Zofran Odt) 4 mg PO Q6H PRN PRN Reason: Nausea able to take PO Ondansetron HCl (Zofran) 4 mg IV Q4H PRN PRN Reason: Nausea/Vomiting Oxycodone HCl (Oxycodone) 5 mg PO Q4H PRN PRN Reason: Pain (moderate 4-6) Last Admin: 12/22/16 08:37 Dose: 5 mg Pantoprazole Sodium (Protonix) 40 mg PO ACBREAKFAST [facility] Last Admin: 12/22/16 08:28 Dose: 40 mg Potassium Chloride (Potassium Chloride) 10 meq PO BIDMEALS [facility] Last Admin: 12/22/16 08:29 Dose: 10 meq Zolpidem Tartrate (Ambien) 5 mg PO BEDTIME PRN PRN Reason: Sleep Discontinued Medications Fentanyl (Sublimaze) 25 mcg IVPUSH ONETIME ONE Stop: 12/20/16 17:37 Last Admin: 12/21/16 07:38 Dose: Not Given Hydromorphone HCl (Dilaudid Workers Compensation Claims Examiner 15 Mg In Ns 30 Ml) 0 mg IV ASDIRECTED PRN; Protocol PRN Reason: Pain Last Admin: 12/20/16 21:31 Dose: 15 mg Hydromorphone HCl (Dilaudid) 1 mg IVPUSH ONETIME ONE Stop: 12/20/16 20:14 Last Admin: 12/20/16 20:27 Dose: 1 mg Sodium Chloride (Normal Saline) 1,000 mls @ 500 mls/hr IV .BOLUS ONE Stop: 12/20/16 18:44 Last Admin: 12/20/16 18:04 Dose: 500 mls/hr Sodium Chloride (Normal Saline) 1,000 mls @ 100 mls/hr IV ASDIRECTED [facility] Last Admin: 12/21/16 15:22 Dose: 100 mls/hr Potassium Acetate 20 meq/ (Sodium Chloride) 110 mls @ 50 mls/hr IV ONETIME ONE Stop: 12/20/16 22:12 Last Admin: 12/20/16 22:23 Dose: Not Given Potassium Chloride 20 meq/ (Premix) 100 mls @ 50 mls/hr IV ONETIME ONE Stop: 12/20/16 23:19 Last Admin: 12/20/16 22:09 Dose: 50 mls/hr Levothyroxine Sodium (Synthroid) 75 mcg PO ACBRK [facility] Last Admin: 12/20/16 22:32 Dose: Not Given Lidocaine HCl (Xylocaine-Mpf 1%) 5 ml INJECT ONETIME ONE Stop: 12/20/16 21:44 Last Admin: 12/20/16 22:10 Dose: 5 ml Lidocaine HCl (Xylocaine-Mpf 1%) Confirm Administered Dose 5 ml .ROUTE .STK-MED ONE Stop: 12/20/16 21:47 Last Admin: 12/20/16 22:41 Dose: Not Given Lorazepam (Ativan) 1 mg IV Q6H PRN PRN Reason: Nausea/Vomiting Mometasone Furoate (Asmanex 220 Mcg) 2 puff INH BID [facility] Last Admin: 12/20/16 22:33 Dose: Not Given Morphine Sulfate (Morphine) 4 mg IVPUSH ONETIME ONE Stop: 12/20/16 16:47 Last Admin: 12/20/16 17:56 Dose: 4 mg Non-Formulary Medication (Cyanocobalamin (Vitamin B12) [Vitamin B12]) 100 mcg PO DAILY [facility] Non-Formulary Medication (Potassium [Potassium]) 10 meq PO BID [facility] Last Admin: 12/20/16 22:40 Dose: 10 meq Pantoprazole Sodium (Protonix) 40 mg PO DAILY [facility] Potassium Chloride (Klor-Con 10) Confirm Administered Dose 10 meq .ROUTE .STK- MED ONE Stop: 12/20/16 22:40 Last Admin: 12/20/16 22:44 Dose: Not Given - Exam Quality Assessment: DVT Prophylaxis General: Alert, Oriented, Cooperative, Mild Distress Lungs: Clear to Auscultation, Normal Respiratory Effort Cardiovascular: Regular Rate, Regular Rhythm, No Murmurs GI/Abdominal Exam: Normal Bowel Sounds, Soft, Non-Tender, No Distention Extremities: Normal Inspection, No Pedal Edema Skin: Warm, Dry, Intact - Problem List Review Problem List Initiated/Reviewed/Updated: Yes - My Orders Last 24 Hours: My Active Orders 12/21/16 15:30 Convert IV to Saline Lock [OM.PC] Routine 12/21/16 15:31 LORazepam [Ativan] 0.5 mg IV Q4H PRN 12/21/16 15:45 Lactobacillus Rhamnosus GG [Culturelle] 2 cap PO BID 12/22/16 15:30 Lisinopril [Prinivil] 10 mg PO DAILY - Plan Plan:: Assessment and plan Compression Fracture T3, T4, fracture right 8 th. rib -Oxycodone 5 mg by mouth every 4 hours -consult to OT, PT Hypertension-blood pressure elevated since admission -Lisinopril 10 mg by mouth daily -Blood pressure control and close monitoring of vital signs Hypokalemia-resolved Hypothyroidism -Synthyroid Vitamin B12 -continue medication Asthma -order Albuterol Neb every 4 hours prn -order Duo nebs every 6 hours prn -continue inhalers Urinary Tract Infection -Augmentin 875 mg po bid -urine culture pending Maintenance issues - - DVT prophylaxis - ambulate - GI prophylaxis - PPI Protonix 40mg po daily - Nutrition - regular diet this evening, nothing by mouth after midnight - [place] catheter - not indicated CODE STATUS - FULL CODE Admission justification - This patient will be admitted for inpatient services and is medically appropriate meeting medical necessity for inpatient admission as outlined in my documentation. I reasonably expect the patient will require inpatient services that span a period time over 2 midnights. I reasonably expect this patient to be discharged or transferred within 96 hours after admission to the [facility]. Disposition - possible discharge to home versus assisted placement Primary care physician - Not listed. Hospitialist: Simon Cruz M.D.
[2016-12-22] MEDS: Lisinopril 10 MG Tab PO SCH (16:25)
[2016-12-22] MEDS: Hydrochlorothiazide 25 MG Tab PO SCH (20:57)
[2016-12-22] MEDS: Erythromycin Base 0.5% Ophth Oint 1 GM Tube EYEBOTH SCH (20:57)
[2016-12-22] MEDS ORDERED: Magnesium Hydroxide 400 MG/5 ML Susp 30 ML Cup PO PRN (21:22)
[2016-12-22] MEDS ORDERED: Polyethylene Glycol 3350 Powder 17 GM Packet PO PRN (21:22)
[2016-12-23] MEDS: oxyCODONE 5 MG Tab PO PRN ×2 (03:15→10:24)
[2016-12-23] MEDS: Levothyroxine 75 MCG Tab PO SCH (07:39)
[2016-12-23] MEDS: Pantoprazole 40 MG Tab.CR PO SCH (07:40)
[2016-12-23] MEDS: Potassium Chloride 10 MEQ Cap.ER PO SCH (07:40)
[2016-12-23] MEDS: Mometasone Furoate Powder 220 MCG/Puff 14 Dose Inhaler INH SCH (07:52)
[2016-12-23 07:59] VITALS: BP 148/59
[2016-12-23] MEDS: Lactobacillus Rhamnosus GG (Probiotic) Cap PO SCH (08:36)
[2016-12-23] MEDS: Atenolol 50 MG Tab PO SCH (08:36)
[2016-12-23] MEDS: Amoxicillin/Clavulanate K 875-125 MG Tab PO SCH (08:36)
[2016-12-23] MEDS: Cyanocobalamin (Vitamin B12) 1,000 MCG Tab PO SCH (08:37)
[2016-12-23] MEDS: Lisinopril 10 MG Tab PO SCH (08:37)
[2016-12-23] MEDS: Fluticasone Propionate Nasal Spray 16 GM Bottle NAS SCH (08:39)
--- NOTE | 2016-12-23 10:31 | PCM.DCSUM1 ---
Discharge Summary - Hospital Course Brief History: This patient is a 76-year-old woman who was admitted through the emergency department after she fell at home experiencing 2 thoracic spinal compression fractures as well as a rib fracture. - Discharge Data Discharge Date: 12/23/16 Discharge Disposition: DC/Tfer to SNF 03 Condition: Fair - Discharge Diagnosis/Problem(s) (1) Compression fracture of thoracic vertebra SNOMED Code(s): 429397319, 982311389 ICD Code: S22.000A - WEDGE COMPRESSION FRACTURE OF UNSP THORACIC VERTEBRA, INIT Status: Acute Priority: High Current Visit: Yes Qualifiers: Encounter type: initial encounter Fracture type: closed Qualified Code(s) : S22.000A - Wedge compression fracture of unspecified thoracic vertebra, initial encounter for closed fracture (2) Rib fracture SNOMED Code(s): 28413612 ICD Code: S22.39XA - FRACTURE OF ONE RIB, UNSP SIDE, INIT FOR CLOS FX Status: Acute Priority: High Current Visit: Yes Qualifiers: Encounter type: initial encounter Rib fracture type: single rib Fracture type: closed Laterality: right Qualified Code(s): S22.31XA - Fracture of one rib, right side, initial encounter for closed fracture (3) Hypertension SNOMED Code(s): 39903433 ICD Code: I10 - ESSENTIAL (PRIMARY) HYPERTENSION Status: Acute Priority: Medium Current Visit: Yes Qualifiers: Hypertension type: essential hypertension Qualified Code(s): I10 - Essential (primary) hypertension (4) Urinary tract infection SNOMED Code(s): 60799401 ICD Code: N39.0 - URINARY TRACT INFECTION, SITE NOT SPECIFIED Status: Acute Current Visit: Yes Qualifiers: Urinary tract infection type: acute cystitis Hematuria presence: with hematuria Qualified Code(s): N30.01 - Acute cystitis with hematuria - Patient Summary/Data Consults: Consultations 12/20/16 19:59 Consult to Spiritual Care [CONS] Routine OT Evaluation and Treatment [CONS] Routine Please Evaluate and Treat. OT Reason for Consult: Discharge Planning Special Instructions: fall; fx rt 8th rib, compression fx T3,T4 This query below is only for informational purposes and is not editable. PT Evaluation and Treatment [CONS] Routine Please Evaluate and Treat. PT Reason for Consult: Strengthening Special Instructions: fall; fx rt 8th rib, compression fx T3, T4 This query below is only for informational purposes and is not editable. Hospital Course: This patient is a 76-year-old woman who unfortunately fell at home experiencing severe chest wall and back pain. On evaluation in the emergency department was found to have 2 thoracic spinal compression fractures at T3 and T4, as well as a rib fracture. She was admitted to the hospital for pain management, also on admission was found to have evidence of a urinary tract infection. She was given medications as needed for pain as well as IV fluids for hydration. Urine culture was obtained and she was started on oral antibiotic therapy with Augmentin 875 one by mouth twice a day. Antibiotic choice was limited by multiple antibiotic allergies. Over the next few days she improved somewhat but was not felt to be safe for discharge to home. She will be discharged to [facility] for [facility]orative physical therapy and occupational therapy. Activity will be as tolerated and she will resume her usual diet. Follow-up will be with primary care as needed at the [facility]. - Discharge Plan Prescriptions/Med Rec: Amoxicillin/Clavulanate K [Augmentin 875-125 MG] 1 tab PO BID #6 tablet Lactobacillus Rhamnosus GG [Culturelle] 2 cap PO BID #120 cap Lisinopril [Prinivil] 10 mg PO DAILY #30 tablet oxyCODONE 5 mg PO Q4H PRN #30 tablet PRN Reason: Pain Home Medications: Home Meds Albuterol Sulfate [Proair Hfa] 2 puff IH QID PRN 05/23/13 [History] Atenolol [Tenormin] 50 mg PO DAILY 05/23/13 [History] Calcium Carb & Citrate/Vit D3 [Citracal + D ER] 1 each PO DAILY 05/23/13 [ History] Hydrochlorothiazide 25 mg PO DAILY 05/23/13 [History] Levothyroxine [Synthroid] 75 mcg PO ACBRK 05/23/13 [History] Mometasone Furoate [Asmanex 220 MCG] 2 puff IH BID 05/23/13 [History] Multivitamin [Multivitamins] 1 cap PO DAILY 05/23/13 [History] Potassium 10 meq PO BID 05/23/13 [History] Cyanocobalamin (Vitamin B12) [Vitamin B12] 100 mcg PO DAILY 02/21/15 [History] Fluticasone Propionate [Flonase] 2 spray MAXIMINO DAILY 02/21/15 [History] Acetaminophen [Tylenol Extra Strength] 500 mg PO BID PRN 10/27/15 [History] Erythromycin Base [Erythromycin 0.5% Ophth Oint] 1 applic OP BEDTIME 10/27/15 [ History] Amoxicillin/Clavulanate K [Augmentin 875-125 MG] 1 tab PO BID #6 tablet [Rx] Lactobacillus Rhamnosus GG [Culturelle] 2 cap PO BID #120 cap 12/23/16 [Rx] Lisinopril [Prinivil] 10 mg PO DAILY #30 tablet 12/23/16 [Rx] oxyCODONE 5 mg PO Q4H PRN #30 tablet 12/23/16 [Rx] Forms: ED Department Discharge Referrals: PCP,None [Primary Care Provider] - - Patient Data Vitals - Most Recent: Last Vital Signs Temp 97.2 F 12/23/16 07:57 Pulse 94 12/23/16 08:36 Resp 18 12/23/16 07:57 BP 148/59 H 12/23/16 08:37 Pulse Ox 94 L 12/23/16 07:57 Weight - Most Recent: 167 lb 8.821 oz I&O - Last 24 hours: Intake & Output 12/22/16 12/23/16 12/23/16 22:59 06:59 14:59 Intake Total 360 480 240 Output Total 800 Balance -440 480 240 Med Orders - Current: Current Medications Acetaminophen (Tylenol) 650 mg PO Q4H PRN PRN Reason: Pain (Mild 1-3)/fever Last Admin: 12/22/16 21:03 Dose: 650 mg Albuterol (Proventil Neb Soln) 2.5 mg NEB Q4H PRN PRN Reason: Shortness Of Breath/wheezing Albuterol (Ventolin Hfa) 0 gm INH QID PRN PRN Reason: Shortness of Breath Last Admin: 12/21/16 15:18 Dose: 2 puff Albuterol/Ipratropium (Duoneb 3.0-0.5 Mg/3 Ml) 3 ml NEB QID PRN PRN Reason: Shortness Of Breath/wheezing Last Admin: 12/22/16 22:25 Dose: 3 ml Amoxicillin/Clavulanate Potassium (Augmentin 875 Mg/125 Mg) 1 tab PO BID [facility]ACHARY Last Admin: 12/23/16 08:36 Dose: 1 tab Atenolol (Tenormin) 50 mg PO DAILY [facility] Last Admin: 12/23/16 08:36 Dose: 50 mg Cyanocobalamin (Vitamin B12) 500 mcg PO DAILY [facility] Last Admin: 12/23/16 08:37 Dose: 500 mcg Docusate Sodium (Colace) 100 mg PO BID PRN PRN Reason: Constipation Last Admin: 12/22/16 21:03 Dose: 100 mg Erythromycin (Erythromycin 0.5% Ophth Oint) 0 gm EYEBOTH BEDTIME [facility] Last Admin: 12/22/16 20:57 Dose: Not Given Fluticasone Propionate (Flonase) 0 gm MAXIMINO DAILY [facility] Last Admin: 12/23/16 08:39 Dose: Not Given Hydrochlorothiazide (Hydrochlorothiazide) 25 mg PO BEDTIME [facility] Last Admin: 12/22/16 20:57 Dose: 25 mg Lactobacillus Rhamnosus (Culturelle) 2 cap PO BID [facility] Last Admin: 12/23/16 08:36 Dose: 2 cap Levothyroxine Sodium (Levothyroxine) 75 mcg PO ACBREAKFAST [facility] Last Admin: 12/23/16 07:39 Dose: 75 mcg Lisinopril (Prinivil) 10 mg PO DAILY [facility] Last Admin: 12/23/16 08:37 Dose: 10 mg Lorazepam (Ativan) 0.5 mg IV Q4H PRN PRN Reason: Nausea/Vomiting Magnesium Hydroxide (Milk Of Magnesia) 30 ml PO DAILY PRN PRN Reason: Constipation Last Admin: 12/23/16 05:28 Dose: 30 ml Mometasone Furoate (Asmanex 220 Mcg) 2 puff INH BIDRT [facility] Last Admin: 12/23/16 07:52 Dose: Not Given Naloxone HCl (Narcan) 0.4 mg IVPUSH Q2M PRN PRN Reason: Respiratory Distress Ondansetron HCl (Zofran Odt) 4 mg PO Q6H PRN PRN Reason: Nausea able to take PO Ondansetron HCl (Zofran) 4 mg IV Q4H PRN PRN Reason: Nausea/Vomiting Oxycodone HCl (Oxycodone) 5 mg PO Q4H PRN PRN Reason: Pain (moderate 4-6) Last Admin: 12/23/16 10:24 Dose: 5 mg Pantoprazole Sodium (Protonix) 40 mg PO ACBREAKFAST [facility] Last Admin: 12/23/16 07:40 Dose: 40 mg Polyethylene Glycol (Miralax) 17 gm PO DAILY PRN PRN Reason: Constipation Last Admin: 12/23/16 05:28 Dose: 17 gm Potassium Chloride (Potassium Chloride) 10 meq PO BIDMEALS [facility] Last Admin: 12/23/16 07:40 Dose: 10 meq Zolpidem Tartrate (Ambien) 5 mg PO BEDTIME PRN PRN Reason: Sleep Discontinued Medications Fentanyl (Sublimaze) 25 mcg IVPUSH ONETIME ONE Stop: 12/20/16 17:37 Last Admin: 12/21/16 07:38 Dose: Not Given Hydromorphone HCl (Dilaudid Allergist/Immunologist 15 Mg In Ns 30 Ml) 0 mg IV ASDIRECTED PRN; Protocol PRN Reason: Pain Last Admin: 12/20/16 21:31 Dose: 15 mg Hydromorphone HCl (Dilaudid) 1 mg IVPUSH ONETIME ONE Stop: 12/20/16 20:14 Last Admin: 12/20/16 20:27 Dose: 1 mg Sodium Chloride (Normal Saline) 1,000 mls @ 500 mls/hr IV .BOLUS ONE Stop: 12/20/16 18:44 Last Admin: 12/20/16 18:04 Dose: 500 mls/hr Sodium Chloride (Normal Saline) 1,000 mls @ 100 mls/hr IV ASDIRECTED [facility] Last Admin: 12/21/16 15:22 Dose: 100 mls/hr Potassium Acetate 20 meq/ (Sodium Chloride) 110 mls @ 50 mls/hr IV ONETIME ONE Stop: 12/20/16 22:12 Last Admin: 12/20/16 22:23 Dose: Not Given Potassium Chloride 20 meq/ (Premix) 100 mls @ 50 mls/hr IV ONETIME ONE Stop: 12/20/16 23:19 Last Admin: 12/20/16 22:09 Dose: 50 mls/hr Levothyroxine Sodium (Synthroid) 75 mcg PO ACBRK [facility] Last Admin: 12/20/16 22:32 Dose: Not Given Lidocaine HCl (Xylocaine-Mpf 1%) 5 ml INJECT ONETIME ONE Stop: 12/20/16 21:44 Last Admin: 12/20/16 22:10 Dose: 5 ml Lidocaine HCl (Xylocaine-Mpf 1%) Confirm Administered Dose 5 ml .ROUTE .STK-MED ONE Stop: 12/20/16 21:47 Last Admin: 12/20/16 22:41 Dose: Not Given Lorazepam (Ativan) 1 mg IV Q6H PRN PRN Reason: Nausea/Vomiting Mometasone Furoate (Asmanex 220 Mcg) 2 puff INH BID [facility] Last Admin: 12/20/16 22:33 Dose: Not Given Morphine Sulfate (Morphine) 4 mg IVPUSH ONETIME ONE Stop: 12/20/16 16:47 Last Admin: 12/20/16 17:56 Dose: 4 mg Non-Formulary Medication (Cyanocobalamin (Vitamin B12) [Vitamin B12]) 100 mcg PO DAILY [facility] Non-Formulary Medication (Potassium [Potassium]) 10 meq PO BID [facility] Last Admin: 12/20/16 22:40 Dose: 10 meq Pantoprazole Sodium (Protonix) 40 mg PO DAILY [facility] Potassium Chloride (Klor-Con 10) Confirm Administered Dose 10 meq .ROUTE .STK- MED ONE Stop: 12/20/16 22:40 Last Admin: 12/20/16 22:44 Dose: Not Given *Q Meaningful Use (DIS) - VTE *Q VTE Criteria *Q: - Stroke *Q Stroke Criteria *Q: - AMI *Q AMI Criteria *Q:
== END 2016-12-23 11:25 | DRG 552 ==
LOC: JP.ED 16:12 → UNDOADMIN 19:20 → JP.MS 19:20 → UNDOADMIN 19:59 → JP.MS 19:59 → UNDODISIN 12-23 11:25
PROVIDERS: ADMIT Hospitalist; ATTEND Hospitalist
DX: S22.000A Wedge compression fracture of unspecified thoracic vertebra, initial encounter for closed fracture (principal); S22.31XA Fracture of one rib, right side, initial encounter for closed fracture; N30.01 Acute cystitis with hematuria; I10 Essential (primary) hypertension; Z86.73 Personal history of transient ischemic attack (TIA), and cerebral infarction without residual deficits; E03.9 Hypothyroidism, unspecified; K21.9 Gastro-esophageal reflux disease without esophagitis; J45.909 Unspecified asthma, uncomplicated; W11.XXXA Fall on and from ladder, initial encounter; E53.8 Deficiency of other specified B group vitamins; E87.6 Hypokalemia; M25.512 Pain in left shoulder
CPT/HCPCS: 36415; 71250; 72125; 73030; 73060; 80053; 85025; 96361; 96374; 99284; 99285; J2270; J7040; 80048; 81001; 83735; 94762; 96375; 97110-GP; 97116-GP; 97162-GP; 97165-GO; 97530-GP; A9270-GY; J1170; J3480; J7620

== ENCOUNTER 2019-04-02 08:25 | Day surgery (SDC) | payer MEDICARE, OTHER ==
[2019-04-02] MEDS ORDERED: Acetaminophen 500 MG Tab PO ONE (08:45)
[2019-04-02] MEDS ORDERED: Neomycin/Polymyxin B 1 ML, Sodium Chloride 0.9% 500 ML IRR ONE ×2 (08:45)
[2019-04-02] MEDS ORDERED: Dextrose 5%-Lactated Ringers 1,000 ML IV SCH (09:00)
[2019-04-02] MEDS ORDERED: Bupivacaine 0.5%/EPINEPHrine 1:200,000 50 ML MDV ONE (10:20)
[2019-04-02] MEDS ORDERED: Rocuronium 50 MG/5 ML Vial ONE (10:21)
[2019-04-02] MEDS ORDERED: Dexamethasone 4 MG/ML SDV ONE (10:21)
[2019-04-02] MEDS ORDERED: Propofol 200 MG/20 ML SDV ONE (10:21)
[2019-04-02] MEDS ORDERED: Succinylcholine 200 MG/10 ML MDV ONE (10:21)
[2019-04-02] MEDS ORDERED: Neostigmine Methylsulfate 1 MG/ML 5 ML Syringe ONE (10:21)
[2019-04-02] MEDS ORDERED: Glycopyrrolate 0.2 MG/ML 5 ML MDV ONE (10:21)
[2019-04-02] MEDS ORDERED: Ondansetron 4 MG/2 ML SDV ONE (10:21)
[2019-04-02] MEDS ORDERED: fentaNYL 250 MCG/5 ML SDV ONE (10:21)
[2019-04-02] MEDS ORDERED: Albuterol/Ipratropium 3.0-0.5 MG/3 ML Neb Soln NEB ONE (10:30)
[2019-04-02] MEDS ORDERED: Meropenem 500 MG in Sodium Chloride 0.9% 50 ML IV ONE (12:15)
[2019-04-02 14:00] VITALS: BP 120/56; PULSE 56
--- NOTE | 2019-04-13 15:01 | OR ---
DATE OF PROCEDURE: 04/02/2019 SURGEON: Krishna Polanco MD PREOPERATIVE DIAGNOSIS: Prolapsing hemorrhoid. POSTOPERATIVE DIAGNOSIS: Single prolapsing low rectal polyp. OPERATIVE PROCEDURE: Anorectal examination with transanal excision of low rectal polyp ([id number]). ANESTHESIA: General. INDICATION FOR PROCEDURE: This is a 78-year-old presenting with what appears to be a prolapsing hemorrhoid. Plan is to proceed with a hemorrhoidectomy. We will also examine the patient and if she is found to have more of a generalized rectal prolapse, a stable rectopexy will be undertaken. Potential risks of the procedure including bleeding, infection, chronic pain following the procedure, problems with fecal incontinence were all gone over, and the patient wishes to proceed. DETAILS OF PROCEDURE: The patient was taken to the operating room and placed in a supine position. After general endotracheal anesthesia was induced, she was converted to a lithotomy position and the perianal prep performed. Initial examination showed, among other things, a large cystocele and enterocele present. There was no significant rectocele. On initial digital and then anoscopic examination, the patient was found to have no significant hemorrhoidal disease, but what was prolapsing, appeared to be a low rectal polyp. This was then exposed with the anal retractor and clamped with a small base of normal-appearing mucosa underlying it. This was then excised and base was ligated with 3-0 Vicryl stitch. This did not appear to involve the muscular mucosa and was highly immobile, consistent with a fairly early stage polyp. At that point, no further polyps were noted. The patient was taken to the recovery room in satisfactory condition. Krishna Polanco MD Job #: [id number]
== END 2019-04-02 14:32 | disposition home or self-care (01) ==
LOC: JP.SDS 08:25
PROVIDERS: ATTEND Surgery
DX: D12.8 Benign neoplasm of rectum (principal); N81.10 Cystocele, unspecified; K46.9 Unspecified abdominal hernia without obstruction or gangrene; I10 Essential (primary) hypertension; J45.909 Unspecified asthma, uncomplicated; E03.9 Hypothyroidism, unspecified; E66.9 Obesity, unspecified; Z68.33 Body mass index [BMI] 33.0-33.9, adult
CPT/HCPCS: 36415; 45171; 80053; 85027; 88305; A9270; J0330; J1100; J2185; J2405; J2704; J2710; J3010; J3490; J7042; J7050; J7620-GY

== ENCOUNTER 2023-01-10 08:49 | Day surgery (SDC) | payer MEDICARE, OTHER ==
[~2023-01-10 08:49] MED LIST: Dextrose 5%-Lactated Ringers 1,000 ML IV SCH; Propofol 200 MG/20 ML SDV ONE; fentaNYL 100 MCG/2 ML SDV ONE
[2023-01-10] MEDS ORDERED: Acetaminophen 500 MG Tab PO ONE (09:00)
[2023-01-10] MEDS ORDERED: Albuterol 0.083% 2.5 MG/3 ML Neb Soln NEB ONE (09:45)
[2023-01-10] MEDS ORDERED: CLINDAMYCIN IV ONE ×3 (10:00)
[2023-01-10] MEDS ORDERED: SOD CHLOR IV ONE ×3 (10:00)
[2023-01-10] MEDS ORDERED: Clindamycin Phosphate in D5W 900 MG in Premix Bag 1 BAG IV ONE ×2 (10:00)
[2023-01-10] MEDS ORDERED: [UNRECOGNIZED DRUG - OTHER] IV ONE ×3 (10:00)
[2023-01-10] MEDS ORDERED: Lidocaine 1% with EPINEPHrine 1:100,000 50 ML MDV ONE (10:39)
[2023-01-10] MEDS ORDERED: Bupivacaine 0.5% 50 ML MDV ONE (10:39)
[2023-01-10] MEDS ORDERED: Propofol 200 MG/20 ML SDV ONE (11:06)
[2023-01-10 12:38] VITALS: BP 154/61; PULSE 53
== END 2023-01-10 13:14 | disposition home or self-care (01) ==
LOC: JP.SDS 08:49
PROVIDERS: ATTEND Surgery
DX: Z12.11 Encounter for screening for malignant neoplasm of colon (principal); D17.9 Benign lipomatous neoplasm, unspecified; D17.23 Benign lipomatous neoplasm of skin and subcutaneous tissue of right leg; K57.30 Diverticulosis of large intestine without perforation or abscess without bleeding; K64.9 Unspecified hemorrhoids; I10 Essential (primary) hypertension; K90.9 Intestinal malabsorption, unspecified; J45.909 Unspecified asthma, uncomplicated; E66.9 Obesity, unspecified; Z86.010 Personal history of colon polyps; Z88.1 Allergy status to other antibiotic agents; Z88.2 Allergy status to sulfonamides; Z88.8 Allergy status to other drugs, medicaments and biological substances; Z68.31 Body mass index [BMI] 31.0-31.9, adult
CPT/HCPCS: 27327; 27339; 88304; 94640; A9270; G0105; J2704; J3010; J3490; J7121